=== PATIENT | female | born 1940 | race Caucasian/White ===

== ENCOUNTER 2019-09-14 11:56 | Emergency (ER) | payer MEDICARE, OTHER ==
[2019-09-14] MEDS ORDERED: HYDROmorphone HCL INJ 2 MG/ML VIAL IM ONE (12:21)
[2019-09-14] MEDS ORDERED: DEXAMETHASONE INJ 4 MG/ML VIAL IM ONE (12:21)
[2019-09-14] MEDS ORDERED: PROMETHAZINE HCL INJ 25 MG/ML VIAL IM ONE (12:22)
[2019-09-14 12:24] VITALS: TEMP 98.3
--- NOTE | 2019-09-14 12:38 | ED.PDOC ---
History of Present Illness - General Chief Complaint: Lower Extremity Injury Stated Complaint: left hip pain Time Seen by Provider: 09/14/19 12:21 Source: patient, RN notes reviewed, Vital Signs reviewed, family - daughter - History of Present Illness Initial Comments: patient is a 79-year-old white female who presents with complaints of left back pain and buttock pain radiating down her leg. This started earlier this week but markedly worsened last night. patient denies any falls and does have a splint history of sciatica in the past.patient denies any nausea, vomiting, diarrhea, chest pain, shortness of breath, dizziness, blurry vision. She denies any numbness in her lower extremities or weakness. She also denies any saddle anesthesia. She denies any urinary/fecal incontinence/retention. Timing/Duration: 1 week Severity: moderate Improving Factors: nothing Worsening Factors: other - outpatient over the sciatic notch, sitting in a chair Associated Symptoms: denies symptoms Allergies/Adverse Reactions: Allergies Ketorolac Tromethamine [From Toradol] Allergy (Verified 09/14/19 12:10) Ondansetron [From Zofran] Adverse Reaction (Severe, Verified 09/14/19 12:10) Vomitting Review of Systems - Review of Systems Constitutional: States: no symptoms reported, see HPI EENTM: States: no symptoms reported Respiratory: States: no symptoms reported Cardiology: States: no symptoms reported Gastrointestinal/Abdominal: States: no symptoms reported Genitourinary: States: no symptoms reported, see HPI Musculoskeletal: States: see HPI, back pain Skin: States: no symptoms reported Neurological: States: no symptoms reported, see HPI. Denies: paresthesia, tingling, weakness Endocrine: States: no symptoms reported Hematologic/Lymphatic: States: no symptoms reported All other Systems: Reviewed and Negative Past Medical History (General) - Patient Medical History Hx Seizures: No Hx of COPD: No Hx Cardiac Disorders: No Hx Congestive Heart Failure: No Hx Hypertension: Yes Hx Diabetes: Yes Hx Gastroesophageal Reflux: Yes - hx ulcers Hx Cancer: Yes Surgical History: appendectomy, cholecystectomy, colectomy, Hysterectomy, other - Vaccination History Hx Influenza Vaccination: Yes - 2019 Hx Pneumococcal Vaccination: Yes - 2018 Physical Exam - Physical Exam General Appearance: Alert, Anxious, Frail, Well Developed, Well Groomed, Well Hydrated, Well Nourished Eye Exam: bilateral normal Ears, Nose, Throat: hearing grossly normal, normal pharynx, other - patient has nasal congestion. Patient is utilizing Afrin nasal spray multiple times per day and has been doing so for years chronically Neck: non-tender, full range of motion, supple, normal inspection Respiratory: chest non-tender, lungs clear, normal breath sounds, no respiratory distress, no accessory muscle use Cardiovascular/Chest: normal peripheral pulses, regular rate, rhythm, no edema, no gallop, no JVD, no murmur Peripheral Pulses: radial,right: 2+, radial,left: 2+ Gastrointestinal/Abdominal: normal bowel sounds, non tender, soft, no organomegaly, no pulsatile mass Back Exam: normal inspection, no CVA tenderness, no vertebral tenderness Extremity: normal range of motion, normal inspection, no pedal edema, no calf tenderness, normal capillary refill, pelvis stable, other - tenderness to palpation over the left sciatic notch. 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 09/14/19 12:42 Patient is feeling better after the IM injections. Plan on discharge home. Patient refuses to take long-term steroids. She is allergic to NSAIDs. She has a prescription of [place] 7.5 is waiting for her at the pharmacy and decided this is the best treatment method. I have recommended she follow up with PCP to obtain physical therapy. She voices understanding and agreement with the plan of care. Jonah Tavera M.D. #[id number] Departure - Departure Clinical Impression: Lumbar radiculopathy, acute Sciatica Qualifiers: Laterality: left Qualified Code(s): M54.32 - Sciatica, left side Time of Disposition: 12:44 Disposition: Discharge to Home or Self Care Condition: Fair Departure Forms: ED Discharge - Pt. Copy, Patient Portal Self Enrollment Instructions: DI for Leg Pain, Sciatica (DC), Radiculopathy (DC), Sciatica Exercises Referrals: ANNEL MEDRANO [Primary Care Provider] - 1 Week
[2019-09-14 13:52] VITALS: O2SAT 94
[2019-09-14 14:00] VITALS: BP 157/61
== END 2019-09-14 13:30 | disposition home or self-care (01) ==
LOC: ER 11:56
DX: M54.42 Lumbago with sciatica, left side (principal); M54.16 Radiculopathy, lumbar region; I10 Essential (primary) hypertension; E11.9 Type 2 diabetes mellitus without complications; K21.9 Gastro-esophageal reflux disease without esophagitis; Z85.9 Personal history of malignant neoplasm, unspecified; Z90.49 Acquired absence of other specified parts of digestive tract; Z88.8 Allergy status to other drugs, medicaments and biological substances
CPT/HCPCS: J1100; J1170; J2550

== ENCOUNTER 2019-09-19 13:36 | Emergency (ER) | payer MEDICARE, OTHER ==
[2019-09-19] MEDS ORDERED: ACETAMINOPHEN IV 1000MG 1,000 MG in PREMIX BOTTLE 1 BOTTLE IVPB ONE (13:50)
[2019-09-19] MEDS ORDERED: MORPHINE SULFATE INJ 10 MG/ML VIAL IV ONE (13:51)
[2019-09-19] MEDS ORDERED: PROMETHAZINE HCL INJ 12.5 MG in SODIUM CHLORIDE 0.9% 50ML 50 ML IVPB ONE (13:52)
--- NOTE | 2019-09-19 13:56 | ED.PDOC ---
History of Present Illness - General Chief Complaint: Back Pain or Injury Stated Complaint: sciatica Time Seen by Provider: 09/19/19 13:39 Source: patient Exam Limitations: no limitations - History of Present Illness Initial Comments: 79-year-old female presents to the emergency department complaining of left low back pain that radiates into her left buttock and down behind her left knee. It is sharp and constant. Worse with movement and especially trying to sit down. She reports the pain started on 09/13/19 after she was taking out the trash and worsened again today after taking out the trash. She was seen in the emergency room on 09/14/19 for the symptoms and was given IM injections with improvement of her pain. Since that time she has taken a few doses of hydrocodone 7.5 but she doesn't take them very regularly because she doesn't like the way it makes her feel. She denies bowel/bladder incontinence, lower extremity weakness or numbness or groin numbness. She denies any trauma. She denies a history of back or leg problems in the past. Pain is currently rated as 10/10 in severity. Allergies/Adverse Reactions: Allergies Ketorolac Tromethamine [From Toradol] Allergy (Verified 09/14/19 12:10) Ondansetron [From Zofran] Adverse Reaction (Severe, Verified 09/14/19 12:10) Vomitting Home Medications: Ambulatory Orders Lidocaine 5% Patch [Lidoderm Patch] 1 ea TOP DAILY PRN #30 patch 09/19/19 Review of Systems - Review of Systems Constitutional: Denies: chills, fever, weakness EENTM: Denies: nose congestion, throat pain Respiratory: Denies: cough, short of breath Cardiology: Denies: chest pain, edema, palpitations Gastrointestinal/Abdominal: States: nausea. Denies: abdominal pain, vomiting - due to pain Genitourinary: Denies: dysuria, hematuria Musculoskeletal: States: back pain - L lumbar back, muscle pain - L buttock Skin: Denies: lesions, rash Neurological: Denies: numbness, tingling, weakness Past Medical History (General) - Patient Medical History Hx Seizures: No Hx Stroke: No Hx of COPD: No Hx Cardiac Disorders: No Hx Congestive Heart Failure: No Hx Hypertension: Yes Hx Diabetes: Yes Hx Gastroesophageal Reflux: Yes - hx ulcers Hx Cancer: Yes - Breast Surgical History: cholecystectomy - Vaccination History Hx Influenza Vaccination: Yes Hx Pneumococcal Vaccination: Yes - Social History Hx Tobacco Use: No Family Medical History - Family History Mother Family History: No Known Physical Exam - Physical Exam General Appearance: Alert, Well Developed, Well Nourished Eyes, Ears, Nose, Throat Exam: PERRL/EOMI, normal ENT inspection Neck Exam: full range of motion, normal inspection Cardiovascular/Respiratory: regular rate, rhythm, no M/R/G, normal peripheral pulses Peripheral Pulses: radial,right: 2+, radial,left: 2+, dorsalis pedis,right: 2+, dorsalis pedis,left: 2+ Gastrointestinal/Abdominal: non tender, soft, no organomegaly, no pulsatile mass Back Exam: normal inspection, muscle spasm - L lumbar, other - TTP into L buttock and posterior leg Extremity Exam: no evidence of injury, normal range of motion, no pedal edema 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 The patient is feeling somewhat better. I discussed with her the plan for discharge home and encourage the patient to take her hydrocodone every 6 hours as directed but if she is concerned about the dose try cutting it in half to see if this helps. She is also encouraged to see if someone else could help her carry out her trash as this seems to be the activity that exacerbates her pain the most. We also discussed plan for discharge with a sheet of back pain exercises and a prescription for Lidoderm patches to help with pain but not adding any other oral medications. She was encouraged to call her primary care physician tomorrow to schedule follow-up appointment as soon as possible and to return to the emergency department immediately for any bowel or bladder incontinence, lower extremity weakness or numbness, significant worsening of pain or any other concerning signs or symptoms. And her daughter at the bedside have voiced understanding and agreed with the treatment plan and all questions and concerns were addressed. - Results/Orders Results/Orders: Laboratory Results - last 24 hr 09/19/19 09/19/19 09/19/19 14:03 14:03 14:24 WBC 4.7 L RBC 4.92 Hgb 12.6 Hct 39.9 MCV 81.1 MCH 25.5 L MCHC 31.5 L RDW 16.0 H Plt Count 264 MPV 8.8 Absolute Neuts (auto) 3.50 Absolute Lymphs (auto) 0.90 L Absolute Monos (auto) 0.30 Absolute Eos (auto) 0.10 Absolute Basos (auto) 0.10 Neutrophils % 73.1 Lymphocytes % 17.9 L Monocytes % 5.5 Eosinophils % 2.2 Basophils % 1.3 Sodium 137 Potassium 4.0 Chloride 94 L Carbon Dioxide 29 Anion Gap 18.0 BUN 36 H Creatinine 1.00 BUN/Creatinine Ratio 36.0 H Random Glucose 148 H Serum Osmolality 284.9 Calcium 9.8 Total Bilirubin 0.3 AST 24 ALT 13 Alkaline Phosphatase 51 Serum Total Protein 7.4 Albumin 4.3 Globulin 3.1 Albumin/Globulin Ratio 1.4 Urine Color Yellow Urine Appearance Clear Urine pH 6.5 Ur Specific [place] 1.015 Urine Protein Negative Urine Glucose (UA) Negative Urine Ketones Negative Urine Blood Negative Urine Nitrite Negative Urine Bilirubin Negative Urine Urobilinogen 0.2 Ur Leukocyte Esterase Trace H Urine RBC 0 Urine WBC 1-3 Ur Epithelial Cells [address] Lumbar Spine read by radiology and reviewed by myself: IMPRESSION: Moderate multilevel degenerative changes, worse at L4-5 and L5-S1 including degenerative disc and facet joint disease. No acute lumbar spine abnormality. Colonic diverticulosis, partially visualized without apparent diverticulitis. Electronically signed by: Ector Westbrook MD 09/19/2019 2:40 PM [employer] Departure - Departure Clinical Impression: Lumbar radiculopathy, acute Sciatica Qualifiers: Laterality: left Qualified Code(s): M54.32 - Sciatica, left side Time of Disposition: 14:52 Disposition: Discharge to Home or Self Care Condition: Good Departure Forms: ED Discharge - Pt. Copy, Patient Portal Self Enrollment Instructions: DI for Low Back Pain, DI for Back Pain With Sciatica, Sciatica Exercises Referrals: ANNEL MEDRANO [Primary Care Provider] - 1-2 Days Prescriptions: Lidocaine 5% Patch [Lidoderm Patch] 1 ea TOP DAILY PRN #30 patch PRN Reason: Pain Home Medications: Ambulatory Orders Lidocaine 5% Patch [Lidoderm Patch] 1 ea TOP DAILY PRN #30 patch 09/19/19 Additional Instructions: Take 1/2-1 tablet of hydrocodone every 6 hours as needed for pain. Due back pain exercises as instructed. Use the Lidoderm patch for up to 12 hours at a time as needed for pain. Have someone else carry out her trash if at all possib le. Call your primary care physician tomorrow to schedule a follow-up appointment as soon as possible. Return to the emergency department for any bowel or bladder incontinence, lower extremity weakness or numbness, groin numbness or any other concerning signs or symptoms.
[2019-09-19] MEDS ORDERED: PROMETHAZINE HCL INJ 25 MG/ML VIAL ONE (14:01)
[2019-09-19] MEDS ORDERED: SODIUM CHLORIDE 0.9% 50ML 50 ML ONE (14:01)
[2019-09-19] MEDS ORDERED: ACETAMINOPHEN IV 1000MG 100 ML ONE (14:03)
--- NOTE | 2019-09-19 14:42 | CT ---
EXAM DESCRIPTION: Lumbar Spine CLINICAL HISTORY: 79 years, Female, L back pain COMPARISON: None TECHNIQUE: CT of the lumbar spine was performed without IV contrast. This exam was performed according to our departmental dose-optimization program, which includes automated exposure control, adjustment of the mA and/or kV according to patient size and/or use of iterative reconstruction technique. FINDINGS: No vertebral body fracture or subluxation. The facet joints are anatomically aligned, and the posterior elements are intact. Vacuum disc phenomenon with concentric disc bulging at L4-5, less advanced concentric disc bulging elsewhere in the lumbar spine. Bilateral facet joint degeneration at L4-5 and L5-S1. Degenerative changes in both sacroiliac joints only partially visualized. The paraspinal soft tissues are unremarkable. Mural calcification the abdominal aorta without aneurysm. 3.7 cm left renal cyst. Tiny nonobstructing calcification inferior pole right kidney. Postoperative changes in the sigmoid colon and colonic diverticulosis, partially visualized without diverticulitis. IMPRESSION: Moderate multilevel degenerative changes, worse at L4-5 and L5-S1 including degenerative disc and facet joint disease. No acute lumbar spine abnormality. Colonic diverticulosis, partially visualized without apparent diverticulitis. Electronically signed by: Ector Westbrook MD 09/19/2019 2:40 PM [employer]
[2019-09-19 15:10] VITALS: O2SAT 94
[2019-09-19 15:26] VITALS: BP 168/72; TEMP 99
== END 2019-09-19 15:45 | disposition home or self-care (01) ==
LOC: ER 13:36
DX: M51.17 Intervertebral disc disorders with radiculopathy, lumbosacral region (principal); I10 Essential (primary) hypertension; E11.9 Type 2 diabetes mellitus without complications; K21.9 Gastro-esophageal reflux disease without esophagitis; Z85.3 Personal history of malignant neoplasm of breast; Z88.8 Allergy status to other drugs, medicaments and biological substances
CPT/HCPCS: 36415; 72131; 80053; 81001; 85025; A4216; J2270; J2550

== ENCOUNTER 2019-09-27 10:00 | Emergency (ER) | payer MEDICARE, OTHER ==
--- NOTE | 2019-09-27 11:19 | RAD ---
EXAM DESCRIPTION: Pelvis CLINICAL HISTORY: 79 years Female, pain 2 weeks COMPARISON: None. FINDINGS: Three views to include AP pelvis and two views left hip demonstrate modest degenerative changes and osteopenia of the visualized bony structures with degenerative disease involving the lower lumbar spine. Bony pelvis is intact. Mild hypertrophic changes involving the greater trochanters are noted bilaterally. Each hip joint is preserved with mild marginal osteophyte formation involving the acetabular rims no fracture or dislocation on the left is seen. The AP view of the right hip is unremarkable on the AP pelvis. IMPRESSION: Osteopenia and degenerative changes without acute fracture or dislocation. Electronically signed by: Aoy Harris MD 09/27/2019 11:18 AM [facility]
--- NOTE | 2019-09-27 11:54 | RAD ---
EXAM DESCRIPTION: Hip,Left 2 Views CLINICAL HISTORY: pain 2 weeks COMPARISON: None Available. TECHNIQUE: AP/frog leg lateral FINDINGS: Two views left hip demonstrate mild degenerative changes and mild osteopenia. The hip appears intact. No fracture or dislocation is seen. Extensive vascular calcification noted. IMPRESSION: No acute abnormality of the left hip noted. Electronically signed by: Ayo Harris MD 09/27/2019 11:53 AM [facility]
--- NOTE | 2019-09-27 12:41 | ED.PDOC ---
History of Present Illness - General Chief Complaint: General Stated Complaint: left hip/left leg pain Time Seen by Provider: 09/27/19 10:46 Source: patient Exam Limitations: no limitations - History of Present Illness Initial Comments: the patient is a 79-year-old female presenting to the emergency room secondary to left hip pain with some mild associated sciatica present last 2-3 weeks. She already did a Solu-Medrol Dosepak. It helped a little bit but has not solved the problem. Pain was a little worse this morning so she presents for evaluation. No pain in the low back. Pain appears to start around the piriformis muscle on the left and extending around the lateral aspect of the hip. It is worse with passive and active range of motion. No crepitus. No shortening. No trauma to incite the problem. Timing/Duration: other - weeks Severity: moderate Improving Factors: immobilization Worsening Factors: movement Associated Symptoms: denies symptoms Allergies/Adverse Reactions: Allergies Ketorolac Tromethamine [From Toradol] Allergy (Verified 09/14/19 12:10) Ondansetron [From Zofran] Adverse Reaction (Severe, Verified 09/14/19 12:10) Vomitting Home Medications: Ambulatory Orders Lidocaine 5% Patch [Lidoderm Patch] 1 ea TOP DAILY PRN #30 patch 09/19/19 Cyclobenzaprine HCl [Flexeril] 5 mg PO TID PRN #30 tab 09/27/19 Review of Systems - Review of Systems Constitutional: States: no symptoms reported EENTM: States: no symptoms reported Respiratory: States: no symptoms reported Cardiology: States: no symptoms reported Gastrointestinal/Abdominal: States: no symptoms reported Genitourinary: States: no symptoms reported Musculoskeletal: States: see HPI Skin: States: no symptoms reported Neurological: States: no symptoms reported Endocrine: States: no symptoms reported All other Systems: No Change from Baseline Past Medical History (General) - Patient Medical History Hx Seizures: No Hx Stroke: No Hx of COPD: No Hx Cardiac Disorders: No Hx Congestive Heart Failure: No Hx Hypertension: Yes Hx Diabetes: Yes Hx Gastroesophageal Reflux: Yes - hx ulcers Hx Cancer: Yes - Breast - Vaccination History Hx Tetanus, Diphtheria Vaccination: Yes Hx Influenza Vaccination: Yes Hx Pneumococcal Vaccination: Yes Immunizations Up to Date: Yes - Social History Hx Tobacco Use: No - Activities of Daily Living Hospice Agency (if applicable):: None - Female History Patient is a Female of Child Bearing Age (10 -59 yrs old): No Patient : No - Triage Comment ED Triage Comment: pt to ED bed 3 via ems stretcher with complaints of lower ba ck pain radiating down left hip and down left leg for 2 weeks, voices she is out of her medication. pt also voices complaints of nausea and vomiting. Family Medical History - Family History Mother Family History: No Known Physical Exam - Physical Exam General Appearance: Alert, No apparent distress Eye Exam: bilateral normal Ears, Nose, Throat: hearing grossly normal, normal ENT inspection Neck: full range of motion, supple Respiratory: no respiratory distress, no accessory muscle use Cardiovascular/Chest: normal peripheral pulses, no edema Peripheral Pulses: dorsalis pedis,right: 2+, dorsalis pedis,left: 2+ Gastrointestinal/Abdominal: non tender, soft Rectal Exam: deferred Back Exam: no CVA tenderness, no vertebral tenderness Extremity: normal range of motion, no pedal edema, no calf tenderness, normal capillary refill, other - see history of present illness. 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 This appears to most likely simply be a strain. She'll be placed on Flexeril for as needed use every 8 hours. She does need to do range of motion exercises and stretching. She is already done a course of steroids and continuing this would likely hinder healing. Ambulate carefully to prevent falls. [id number] Motrin or Aleve may help with discomfort. ER warnings were given for any worsening. Follow up with primary care doctor next week. jhon [email or web address] [id number] Departure - Departure Clinical Impression: Strain of left hip Qualifiers: Encounter type: initial encounter Qualified Code(s): S76.012A - Strain of muscle, fascia and tendon of left hip, initial encounter Disposition: Discharge to Home or Self Care Condition: Good Departure Forms: ED Discharge - Pt. Copy, Patient Portal Self Enrollment Instructions: Lower Extremity Muscle Strain (DC) Diet: regular diet Activity: increase activity as tolerated Referrals: ANNEL MEDRANO [Primary Care Provider] - 1-2 Weeks Prescriptions: Cyclobenzaprine HCl [Flexeril] 5 mg PO TID PRN #30 tab PRN Reason: Muscle Spasms Home Medications: Ambulatory Orders Lidocaine 5% Patch [Lidoderm Patch] 1 ea TOP DAILY PRN #30 patch 09/19/19 Cyclobenzaprine HCl [Flexeril] 5 mg PO TID PRN #30 tab 09/27/19 Additional Instructions: the patient is a 79-year-old female presenting to the emergency room secondary to left hip pain for the last couple of weeks. This appears to most likely simply be a strain. She'll be placed on Flexeril for as needed use every 8 hours. She does need to do range of motion exercises and stretching. She is already done a course of steroids and continuing this would likely hinder healing. Ambulate carefully to prevent falls. [id number] Motrin or Aleve may help with discomfort. ER warnings were given for any worsening. Follow up with primary care doctor next week.
[2019-09-27 13:36] VITALS: TEMP 98.4
[2019-09-27 13:38] VITALS: BP 169/79; O2SAT 94
== END 2019-09-27 13:05 | disposition home or self-care (01) ==
LOC: ER 10:00
DX: S76.012A Strain of muscle, fascia and tendon of left hip, initial encounter (principal); I10 Essential (primary) hypertension; E11.9 Type 2 diabetes mellitus without complications; K21.9 Gastro-esophageal reflux disease without esophagitis; Z85.3 Personal history of malignant neoplasm of breast; Z79.899 Other long term (current) drug therapy; Z88.8 Allergy status to other drugs, medicaments and biological substances; X58.XXXA Exposure to other specified factors, initial encounter; Y92.9 Unspecified place or not applicable

== ENCOUNTER → 2019-10-07 | Outpatient (CLI) | payer MEDICARE, OTHER | LOC: GMAJS 14:18 | PROVIDERS: ATTEND Physician Assistant | DX: M54.32 Sciatica, left side (principal); H81.393 Other peripheral vertigo, bilateral; D51.9 Vitamin B12 deficiency anemia, unspecified; E03.9 Hypothyroidism, unspecified; E55.9 Vitamin D deficiency, unspecified ==

== ENCOUNTER 2019-10-09 00:16 | Emergency (ER) | payer MEDICARE, OTHER ==
[2019-10-09 00:33] VITALS: TEMP 97
[2019-10-09] MEDS: HYDROmorphone HCL INJ 2 MG/ML VIAL IM ONE (00:47)
[2019-10-09] MEDS: diphenhydrAMINE HCL 50 MG/ML VIAL IM ONE (00:48)
[2019-10-09 02:03] VITALS: O2SAT 91
--- NOTE | 2019-10-09 02:10 | ED.PDOC ---
History of Present Illness - General Chief Complaint: Back Pain or Injury Stated Complaint: low back pain/sciatica Time Seen by Provider: 10/09/19 00:40 Source: patient, RN notes reviewed, Vital Signs reviewed, old records - From patient's previous visit here in September 2019 Exam Limitations: no limitations - History of Present Illness Initial Comments: Patient is a 79-year-old white female who presents with complaints of sciatica and left hip pain. Patient was treated by me approximately 3-1/2 weeks ago and was discharged home with prescription for steroids and narcotic pain medicine. Patient was seen earlier this week by her PCP and is scheduled for an MRI on Friday but is having worsening pain and no pain medicine at home. Her PCP refuses to write for narcotics. The pain is sharp and stabbing in nature, waxes and wanes, is severe in intensity, worsened by palpation, sitting on her left buttock and walking. Nothing seems to make it better except narcotic pain medicines. Patient denies any headaches, dizziness, blurry vision, chest pain, shortness of breath, nausea, vomiting, diarrhea. Patient denies any saddle anesthesia or any urinary/bowel retention/incontinence. Timing/Duration: other - Over a month Quality/Severity: severe Back Pain Location: lumbar spine, other - Left sciatic notch Back Pain Radiation: buttocks, upper legs - Left leg Method of Injury/Prior Injury: unknown Improving Factors: nothing Worsening Factors: movement Associated Symptoms: denies symptoms Allergies/Adverse Reactions: Allergies Ketorolac Tromethamine [From Toradol] Allergy (Verified 09/14/19 12:10) Ondansetron [From Zofran] Adverse Reaction (Severe, Verified 09/14/19 12:10) Vomitting Home Medications: Ambulatory Orders DULoxetine HCL [Cymbalta] 30 mg PO BID 10/09/19 Furosemide 80 mg PO DAILY 10/09/19 Levothyroxine Sodium [Tirosint] 50 mcg DAILY 10/09/19 Losartan Potassium 100 mg PO BEDTIME 10/09/19 Metformin HCl [Glumetza] 500 mg PO BID 10/09/19 Pantoprazole Sodium 40 mg PO DAILY 10/09/19 Verapamil HCl [Verapamil HCl Sr] 120 mg PO DAILY 10/09/19 Verapamil HCl [Verapamil HCl Sr] 240 mg PO BEDTIME 10/09/19 Review of Systems - Review of Systems Constitutional: States: no symptoms reported, see HPI EENTM: States: no symptoms reported Respiratory: States: no symptoms reported Cardiology: States: no symptoms reported Gastrointestinal/Abdominal: States: no symptoms reported Genitourinary: States: no symptoms reported, see HPI. Denies: dysuria, hematuria, pain Musculoskeletal: States: see HPI, back pain Skin: States: no symptoms reported Neurological: States: no symptoms reported Endocrine: States: no symptoms reported Hematologic/Lymphatic: States: no symptoms reported Past Medical History (General) - Patient Medical History Hx Seizures: No Hx Stroke: No Hx Dementia: No Hx Asthma: No Hx of COPD: No Hx Cardiac Disorders: Yes - Angina Hx Congestive Heart Failure: No Hx Pacemaker: No Hx Hypertension: Yes Hx Thyroid Disease: No Hx Diabetes: Yes Hx Gastroesophageal Reflux: No Hx Renal Disease: No Hx Cancer: Yes Hx of HIV: No Hx Hepatitis C: No Hx MRSA: No Surgical History: appendectomy, cholecystectomy - Vaccination History Hx Tetanus, Diphtheria Vaccination: No Hx Influenza Vaccination: Yes Hx Pneumococcal Vaccination: Yes - Social History Hx Tobacco Use: No Hx Chewing Tobacco Use: No Hx Alcohol Use: No Hx Substance Use: No Hx Substance Use Treatment: No Hx Depression: No Feels Threatened In Home Enviroment: No Feels Threatened In a Relationship: No Hx Physical Abuse: No Hx Emotional Abuse: No Hx Suspected Abuse: No - Female History Patient : No Family Medical History - Family History Mother Family History: No Known Physical Exam - Physical Exam General Appearance: Alert, Anxious, Well Developed, Well Groomed, Well Hydrated, Well Nourished Eyes, Ears, Nose, Throat Exam: PERRL/EOMI, normal ENT inspection, pharynx normal Neck Exam: non-tender, full range of motion, normal alignment, normal inspection Cardiovascular/Respiratory: regular rate, rhythm, no M/R/G, normal peripheral pulses, no JVD, normal breath sounds, no respiratory distress Peripheral Pulses: radial,right: 2+, radial,left: 2+ Gastrointestinal/Abdominal: normal bowel sounds, non tender, soft, no organomegaly, no pulsatile mass Back Exam: no CVA tenderness, no vertebral tenderness, other - Patient with some mild muscle spasm and tenderness palpation of the left lateral lumbar paraspinous muscles. There is no midline tenderness to palpation. There are no step-offs or crepitus. Patient is also tender to palpation over the sciatic notch. 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 10/09/19 02:14 Patient is improved after IM pain medications. Plan on discharge home with follow-up with PCP. 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 Jonah Tavera M.D. #[id number] Departure - Departure Clinical Impression: Sciatica of left side, Sciatica associated with disorder of lumbosacral spine Sciatica Qualifiers: Laterality: left Qualified Code(s): M54.32 - Sciatica, left side Strain of left hip Qualifiers: Encounter type: subsequent encounter Qualified Code(s): S76.012D - Strain of muscle, fascia and tendon of left hip, subsequent encounter Time of Disposition: 02:17 Disposition: Discharge to Home or Self Care Condition: Good Departure Forms: ED Discharge - Pt. Copy, Patient Portal Self Enrollment Instructions: DI for Back Pain With Sciatica Referrals: ANNEL MEDRANO [Primary Care Provider] - 1-5 Days Home Medications: Ambulatory Orders DULoxetine HCL [Cymbalta] 30 mg PO BID 10/09/19 Furosemide 80 mg PO DAILY 10/09/19 Levothyroxine Sodium [Tirosint] 50 mcg DAILY 10/09/19 Losartan Potassium 100 mg PO BEDTIME 10/09/19 Metformin HCl [Glumetza] 500 mg PO BID 10/09/19 Pantoprazole Sodium 40 mg PO DAILY 10/09/19 Verapamil HCl [Verapamil HCl Sr] 120 mg PO DAILY 10/09/19 Verapamil HCl [Verapamil HCl Sr] 240 mg PO BEDTIME 10/09/19
[2019-10-09] MEDS: HYDROCOD/APAP 7.5/325 (ER DISP) #3 TAB PO ONE (02:28)
[2019-10-09 02:33] VITALS: BP 149/63
== END 2019-10-09 02:33 | disposition home or self-care (01) ==
LOC: ER 00:16
DX: S76.012A Strain of muscle, fascia and tendon of left hip, initial encounter (principal); M54.42 Lumbago with sciatica, left side; I10 Essential (primary) hypertension; E11.9 Type 2 diabetes mellitus without complications; Z85.9 Personal history of malignant neoplasm, unspecified; Z79.899 Other long term (current) drug therapy; Z79.84 Long term (current) use of oral hypoglycemic drugs; Z88.8 Allergy status to other drugs, medicaments and biological substances; X58.XXXA Exposure to other specified factors, initial encounter; Y92.9 Unspecified place or not applicable
CPT/HCPCS: J1170; J1200

== ENCOUNTER → 2019-10-11 | Outpatient (CLI) | payer MEDICARE, OTHER ==
--- NOTE | 2019-10-11 16:49 | MRI ---
EXAM DESCRIPTION: Lumbar Spine w/o Contrast : Magnetic Resonance Imaging. CLINICAL HISTORY: SCIATICA, LEFT SIDE COMPARISON: CT scan lumbar spine 19 September 2019. Previous MRI scan lumbar spine without contrast outside imaging facility May 2016 not available for comparison at this time. TECHNIQUE: Multiplanar, multiple standard sequences, non contrast MRI, lumbar spine. FINDINGS: L5-S1: The disc is well visualized on axial T2 series 501, image 3. L5-S1 disc is desiccated with disc space preserved. Degenerative hypertrophy of the posterior elements: Flavum ligaments and facet joints with minimal transverse narrowing of the canal. Mild bilateral foraminal narrowing. L4-L5: Disc desiccation and moderate disc space loss. Anterior and posterior bulging. Degenerative hypertrophy of the posterior elements. Mild to moderate canal narrowing. Mild left foraminal narrowing, and mild to moderate right foraminal narrowing L3-L4: Disc desiccation and minimal disc space loss. Anterior and posterior bulging slightly more to the left of midline with posterior 7 mm protrusion and inferior extrusion 11 mm encroaching on the left subarticular recess, with displacement of the descending left L4 nerve. Left paracentral mild canal stenosis. Moderate narrowing of the left foramen with disc bulge into the foramen and mild narrowing of the right foramen. L2-L3: Disc desiccation minimal anterior bulging. Hypertrophic posterior elements minimal canal narrowing posteriorly. Mild narrowing of the left foramen and right foramen is patent. L1-L2: Disc desiccation with anterior bulging and endplate ridging. Grade 1 retrolisthesis 2 mm. Hypertrophy of the posterior ligaments but no significant canal narrowing. Tiny posterior disc bulge. Bilateral foramina are patent. T12-L1: Normal signal in the disc with disc space preserved. Posterior elements unremarkable. Canal and foramina are patent. Conus terminates just below the disc space. Left convex L4-S1 curve. Right convex T11 L1 curve. Paravertebral soft tissues paraspinal muscle atrophy. Psoas muscle atrophy. At least 4 left renal cysts and one right renal cyst. Also large left parapelvic cyst.. 1.0 x 1.5 cm synovial cyst posterior to the right L4-L5 facet joint. Distal cord normal signal and caliber. Normal marrow signal in the remaining vertebral bodies and the posterior elements. Vertebral bodies are not compressed at any level. IMPRESSION: 1. Large left paracentral herniation L3-L4 disc with inferior extrusion into the left side of the canal and left subarticular recess with effacement and compromise of the descending left L4 nerve. Left paracentral canal stenosis. Moderate left foraminal narrowing. 2. Significant atrophic degenerative changes in the posterior elements with trace anterolisthesis posterior L4-L5 disc bulge mild to moderate canal narrowing and bilateral foraminal narrowing. Moderate disc space loss. 3. For discussion of other levels, please see above details. 4. Paraspinal soft tissue findings; please see above details. Electronically signed by: Nikko Toth MD 10/11/2019 4:48 PM [facility]
== END ==
LOC: RAD 09:55
PROVIDERS: ATTEND Physician Assistant
DX: M51.26 Other intervertebral disc displacement, lumbar region (principal); M51.36 Other intervertebral disc degeneration, lumbar region; M47.896 Other spondylosis, lumbar region; M48.062 Spinal stenosis, lumbar region with neurogenic claudication; M43.16 Spondylolisthesis, lumbar region; M54.32 Sciatica, left side; M71.38 Other bursal cyst, other site; N28.1 Cyst of kidney, acquired

== ENCOUNTER 2019-11-22 12:47 | Emergency (ER) | payer MEDICARE, OTHER ==
--- NOTE | 2019-11-22 15:32 | ED.PDOC ---
History of Present Illness - General Chief Complaint: GI Problem Stated Complaint: BLACK STOOLS Time Seen by Provider: 11/22/19 13:56 Source: patient Exam Limitations: no limitations - History of Present Illness Initial Comments: Concern over her continued GI bleeding. She has had a couple more melanotic stools. She was in the hospital at [facility] for a few days for a GI bleed. She is no longer having any frankly bloody stools. Mild epigastric discomfort. No syncope or near syncope. No chest pain. She did not require transfusion. She did not receive endoscopy. She has been treated for intestinal infection with metronidazole and Levaquin. She is also on Protonix already. Timing/Duration: unsure Severity: mild Improving Factors: nothing Worsening Factors: nothing Associated Symptoms: denies symptoms Allergies/Adverse Reactions: Allergies Ketorolac Tromethamine [From Toradol] Allergy (Verified 09/14/19 12:10) Ondansetron [From Zofran] Adverse Reaction (Severe, Verified 09/14/19 12:10) Vomitting Home Medications: Ambulatory Orders DULoxetine HCL [Cymbalta] 30 mg PO BID 10/09/19 Furosemide 80 mg PO DAILY 10/09/19 Levothyroxine Sodium [Tirosint] 50 mcg DAILY 10/09/19 Losartan Potassium 100 mg PO BEDTIME 10/09/19 Metformin HCl [Glumetza] 500 mg PO BID 10/09/19 Pantoprazole Sodium 40 mg PO DAILY 10/09/19 Verapamil HCl [Verapamil HCl Sr] 120 mg PO DAILY 10/09/19 Verapamil HCl [Verapamil HCl Sr] 240 mg PO BEDTIME 10/09/19 Sucralfate Tab [Carafate Tab] 1 gm PO QID #60 tab 11/22/19 Review of Systems - Review of Systems Constitutional: States: no symptoms reported EENTM: States: no symptoms reported Respiratory: States: no symptoms reported Cardiology: States: no symptoms reported Gastrointestinal/Abdominal: States: no symptoms reported, see HPI Genitourinary: States: no symptoms reported Musculoskeletal: States: no symptoms reported Skin: States: no symptoms reported Neurological: States: no symptoms reported Endocrine: States: no symptoms reported All other Systems: No Change from Baseline Past Medical History (General) - Patient Medical History Hx Seizures: No Hx Stroke: No Hx Dementia: No Hx Asthma: No Hx of COPD: No Hx Cardiac Disorders: Yes - Angina Hx Congestive Heart Failure: No Hx Pacemaker: No Hx Hypertension: Yes Hx Thyroid Disease: No Hx Diabetes: No Hx Gastroesophageal Reflux: No Hx Renal Disease: No Hx Cancer: Yes Hx of HIV: No Hx Hepatitis C: No Hx MRSA: No - Vaccination History Hx Tetanus, Diphtheria Vaccination: No Hx Influenza Vaccination: Yes Hx Pneumococcal Vaccination: Yes - Social History Hx Tobacco Use: No Hx Chewing Tobacco Use: No Hx Alcohol Use: No Hx Substance Use: No Hx Substance Use Treatment: No Hx Depression: No Hx Physical Abuse: No Hx Emotional Abuse: No Hx Suspected Abuse: No - Female History Patient : No Family Medical History - Family History Mother Family History: No Known Physical Exam - Physical Exam General Appearance: Alert, Comfortable, No apparent distress Eye Exam: bilateral normal Ears, Nose, Throat: hearing grossly normal, normal ENT inspection Neck: non-tender, supple Respiratory: lungs clear, normal breath sounds, no respiratory distress, no accessory muscle use Cardiovascular/Chest: normal peripheral pulses, regular rate, rhythm, no edema Peripheral Pulses: radial,right: 2+, radial,left: 2+ Gastrointestinal/Abdominal: non tender, soft Rectal Exam: deferred Back Exam: no CVA tenderness, no vertebral tenderness Extremity: normal range of motion, non-tender, normal inspection, no pedal edema, normal capillary refill 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 Patient reports that her hemoglobin was down to 8.3 yesterday. It is up past 11 today. It is likely that her bowels are still cleaning out the melena that was present. We are going to add Carafate to her medication regimen for the next 2 weeks in case this is coming from the upper intestinal tract. She does need to continue her other medications. ER warnings are given for any significant worsening. She did have 1 bowel movement here that did not appear melanotic. jhon buenrostro [id number] - Results/Orders Results/Orders: Laboratory Tests 11/22/19 11/22/19 11/22/19 14:30 14:30 14:30 WBC 5.3 RBC 4.45 Hgb 11.3 L Hct 35.5 L MCV 79.7 L MCH 25.5 L MCHC 32.0 L RDW 15.2 H Plt Count 244 MPV 8.6 Absolute Neuts (auto) 3.90 Absolute Lymphs (auto) 0.80 L Absolute Monos (auto) 0.40 Absolute Eos (auto) 0.10 Absolute Basos (auto) 0.10 Neutrophils % 74.8 Lymphocytes % 14.4 L Monocytes % 7.0 Eosinophils % 2.6 Basophils % 1.2 PT 10.2 INR 1.03 PTT (SP) 22.6 Sodium 137 Potassium 4.0 Chloride 95 L Carbon Dioxide 27 Anion Gap 19.0 H BUN 36 H Creatinine 1.27 BUN/Creatinine Ratio 28.3 H Random Glucose 150 H Serum Osmolality 285.0 Calcium 9.5 Total Bilirubin 0.5 AST 23 ALT 10 Alkaline Phosphatase 41 L Serum Total Protein 6.9 Albumin 4.0 Globulin 2.9 Albumin/Globulin Ratio 1.4 Departure - Departure Clinical Impression: Gastritis Qualifiers: Gastritis type: unspecified gastritis Chronicity: chronic Gastritis bleeding: without bleeding Qualified Code(s): K29.50 - Unspecified chronic gastritis without bleeding Disposition: Discharge to Home or Self Care Condition: Fair Departure Forms: ED Discharge - Pt. Copy, Patient Portal Self Enrollment Instructions: DI for Gastrointestinal Bleeding Diet: bland diet Activity: increase activity as tolerated Referrals: Aman Mcdaniel MD [Primary Care Provider] - 1-2 Weeks Prescriptions: Sucralfate Tab [Carafate Tab] 1 gm PO QID #60 tab Home Medications: Ambulatory Orders DULoxetine HCL [Cymbalta] 30 mg PO BID 10/09/19 Furosemide 80 mg PO DAILY 10/09/19 Levothyroxine Sodium [Tirosint] 50 mcg DAILY 10/09/19 Losartan Potassium 100 mg PO BEDTIME 10/09/19 Metformin HCl [Glumetza] 500 mg PO BID 10/09/19 Pantoprazole Sodium 40 mg PO DAILY 10/09/19 Verapamil HCl [Verapamil HCl Sr] 120 mg PO DAILY 10/09/19 Verapamil HCl [Verapamil HCl Sr] 240 mg PO BEDTIME 10/09/19 Sucralfate Tab [Carafate Tab] 1 gm PO QID #60 tab 11/22/19 Additional Instructions: The patient is a 79-year-old female presented emergency room secondary to concern over a possible continued GI bleed. Patient reports that her hemog lobin was down to 8.3 yesterday. It is up past 11 today. It is likely that her bowels are still cleaning out the melena that was present. We are going to add Carafate to her medication regimen for the next 2 weeks in case this is coming from the upper intestinal tract. She does need to continue her other medications. ER warnings are given for any significant worsening. She did have 1 bowel movement here that did not appear melanotic.
[2019-11-22 16:10] VITALS: BP 134/82; TEMP 98.6; O2SAT 98
== END 2019-11-22 16:00 | disposition home or self-care (01) ==
LOC: ER 12:47
DX: K29.50 Unspecified chronic gastritis without bleeding (principal); R19.5 Other fecal abnormalities; I10 Essential (primary) hypertension; Z85.9 Personal history of malignant neoplasm, unspecified; Z79.899 Other long term (current) drug therapy; Z88.8 Allergy status to other drugs, medicaments and biological substances; Z88.5 Allergy status to narcotic agent